=== PATIENT | female | born 1965 | race African-American/Black ===

== ENCOUNTER 2018-05-27 15:00 | Emergency (ER) | payer OTHER ==
[~2018-05-27] VITALS: Ht 154.9 cm; Wt 73.0 kg
[2018-05-27 15:14] VITALS: BP 124/70
[2018-05-27] MEDS ORDERED: KETOROLAC TROMETHAMINE INJ 60 MG/2 ML VIAL IM ONE ×2 (15:30→15:34)
--- NOTE | 2018-05-27 16:05 | NUR ---
CALLED TIM RE: XRAY.
== END 2018-05-27 16:39 | disposition home or self-care (01) ==
LOC: ER 15:06
DX: M65.4 Radial styloid tenosynovitis [de Quervain] (principal)
CPT/HCPCS: 29125; 73110; 96372; 99283; A4606; J1885